=== PATIENT | male | born 1995 | race Native Hawaiian/Other Pacific Islander ===

== ENCOUNTER 2019-01-29 14:03 | Emergency (ER) | payer SELFPAY ==
[2019-01-29] MEDS ORDERED: NACL 0.9% 1000 ML 1,000 ML IV ONE (14:11)
[2019-01-29] MEDS ORDERED: PEPCID IV ONE (14:11)
[2019-01-29] MEDS ORDERED: ZOFRAN IV ONE (14:11)
[2019-01-29] MEDS ORDERED: ATIVAN IV ONE (14:12)
--- NOTE | 2019-01-29 14:16 | Emergency Department Report ---
Vomiting/Diarrhea - HPI Stated Complaint: VALARIE/TIGHT CHEST Time Seen by Provider: 01/29/19 14:11 Duration: Today (approx 20 min) Severity: severe Nausea/Vomiting Severity: Severe Diarrhea Severity: None Pain Severity: None Symptoms: Yes Recent Unusual Foods (patient states that he has just eaten however the food tasted fine and soon afterwards began to vomit), No Watery Diarrhea, No Bloody diarrhea, No Fever, No Able to Tolerate Fluids, No Recent Untreated Water, No Recent use of Antibiotics, No Family w/ Similar Symptoms, No Contacts w/ Similar Symptoms, No Rash, No Hematuria, No Recent URI Symptoms ED Review of Systems ROS: Stated complaint: VALARIE/TIGHT CHEST Other details as noted in HPI Comment: All other systems reviewed and negative ED Past Medical Hx - Medications Home Medications: Home Medications Medication Instructions Recorded Confirmed Last Taken Type ALBUTEROL Inhaler (OR & NICU) 2 puff IH QID PRN #1 inhalation 01/29/19 Unknown Rx [ProAir HFA Inhaler] Ondansetron [Zofran Odt] 4 mg PO Q8HR PRN #10 tab.rapdis 01/29/19 Unknown Rx predniSONE [Deltasone] 20 mg PO QDAY #5 tab 01/29/19 Unknown Rx Vomiting Diarrhea Exam - Exam General: Vital signs noted. No distress. Alert and acting appropriately. HEENT: Yes Moist Mucous Membranes, No Pharyngeal Erythema, No Pharyngeal Exudates, No Rhinorrhea, No Conjuctival Injection, No Frontal Tenderness, No Maxillary Tenderness Neck: No Adenopathy, No Rigidity Lungs: Yes Clear Lung Sounds, Yes Good Air Exchange, No Wheezes, No Stridor, No Cough, No Nasal Flaring, No Retractions, No Use of Accessory Muscles Heart exam: Regular: Yes, Murmur: No, Tachycardia: No Abdomen: Tenderness: No, Peritoneal Signs: No, Distention: No, Hyperactive Bowel sounds: No Skin exam: Rash: No, Edema: No, Normal turgor: Yes Neurologic: Alert and oriented, no deficits. Patient does state he feels very anxious Musculoskeletal: Unremarkable. ED Medical Decision Making - Medical Decision Making Patient after Zofran was feeling much improved. After the Ativan patient's states his anxiety symptoms,. Patient does state that he feels as though he is now congested and has a mild headache with cough. Patient likely is beginning to have some upper respiratory/viral illness type symptoms. Patient will be discharged home with Ms. symptomatically relief. Critical care attestation.: If time is entered above; I have spent that time in minutes in the direct care of this critically ill patient, excluding procedure time. ED Disposition Clinical Impression: Viral syndrome, Anxiety reaction Disposition: DC-01 TO HOME OR SELFCARE Is pt being admited?: No Does the pt Need Aspirin: No Condition: Stable Instructions: Viral Syndrome (ED), Anxiety (ED) Time of Disposition: 15:31
--- NOTE | 2019-01-29 18:40 | Event Note ---
pharmacy phoned [phone] and albuterol dose clarified
== END 2019-01-29 16:00 | disposition home or self-care (01) ==
LOC: ED 14:03
DX: B34.9 Viral infection, unspecified (principal); F41.9 Anxiety disorder, unspecified
CPT/HCPCS: 96361; 96374; 96375; 99282; J2060; J2405; J7030